=== PATIENT | male | born 1955 | race Caucasian/White ===

== ENCOUNTER 2016-07-23 08:17 | Outpatient (CLI) | payer OTHER | END 2016-07-23 08:18 | disposition home or self-care (01) | LOC: BURLAB 08:17 | PROVIDERS: ATTEND Nurse Practitioner | DX: Z48.812 Encounter for surgical aftercare following surgery on the circulatory system (principal); Z95.4 Presence of other heart-valve replacement | CPT/HCPCS: 36415; 85610 ==

== ENCOUNTER 2016-08-06 08:20 | Outpatient (CLI) | payer OTHER ==
[2016-08-06 08:45] LABS: Prothrombin Time 26.5 SEC (12.0-14.7)
== END 2016-08-06 08:21 | disposition home or self-care (01) ==
LOC: BURLAB 08:20
PROVIDERS: ATTEND Nurse Practitioner
DX: Z48.812 Encounter for surgical aftercare following surgery on the circulatory system (principal); Z95.4 Presence of other heart-valve replacement
CPT/HCPCS: 36415; 85610

== ENCOUNTER 2016-09-02 09:02 | Outpatient (CLI) | payer OTHER ==
[2016-09-02 09:35] LABS: INR-International Normal Ratio 2.2; Prothrombin Time 24.6 SEC (12.0-14.7)
== END 2016-09-02 09:03 | disposition home or self-care (01) ==
LOC: BURLAB 09:02
PROVIDERS: ATTEND Nurse Practitioner
DX: Z48.812 Encounter for surgical aftercare following surgery on the circulatory system (principal); Z95.4 Presence of other heart-valve replacement
CPT/HCPCS: 36415; 85610

== ENCOUNTER 2016-09-16 09:02 | Outpatient (CLI) | payer OTHER ==
[2016-09-16 09:29] LABS: INR-International Normal Ratio 2.7; Prothrombin Time 28.3 SEC (12.0-14.7)
== END 2016-09-16 09:03 | disposition home or self-care (01) ==
LOC: BURLAB 09:02
PROVIDERS: ATTEND Nurse Practitioner
DX: Z48.812 Encounter for surgical aftercare following surgery on the circulatory system (principal); Z95.4 Presence of other heart-valve replacement
CPT/HCPCS: 36415; 85610